=== PATIENT | female | born 1950 | race Caucasian/White ===

== ENCOUNTER 2018-11-10 19:03 | Emergency (ER) | payer OTHER ==
[~2018-11-10] VITALS: Ht 162.6 cm; Wt 82.8 kg
[2018-11-10 19:24] VITALS: Ht 162.6 cm; Wt 82.8 kg
[2018-11-10] MEDS ORDERED: PROMETHAZINE/DM (CUP) PO ONE (23:00)
--- NOTE | 2018-11-10 23:08 | ERD ---
ER Documentation Chief Complaint Chief Complaint c/o cough x5 days, fever today. Took motrin at home [employer] HPI 67-year-old female no past medical history presents with history of cough and fe clark. States her cough was started about 5 days ago when she spiked a fever of 101 today. She has been taking Motrin. States that the cough is been getting worse over the last 5 days. Denies chest pain, wheezing, dyspnea, shortness of breath, leg edema, hemoptysis, orthopnea, nausea, vomiting, diarrhea. Denies past medical history. Denies allergies. Denies medications. Denies surgeries. Denies alcohol, tobacco, drug use. Up to date on vaccines. ROS All systems reviewed and are negative except as per history of present illness. Medications Home Meds Active Scripts Albuterol Sulfate* (Ventolin HFA*) 18 Gm Hfa.aer.ad, 2 PUFF INHALATION Q4H, #1 INHALER Prov:CELSO PINK 11/11/18 Promethazine HCl/Codeine (Prometh-Codein 6.25-10 mg/5 ml) 5 Ml Syrup, 5 ML PO Q4 for cough, #4 OZ Prov:CELSO PINK 11/10/18 Allergies Allergies: Coded Allergies: No Known Allergies (Verified Allergy, Unknown, 11/10/18) PMhx/Soc Medical and Surgical Hx: pt denies Medical Hx, pt denies Surgical Hx Hx Alcohol Use: No Hx Substance Use: No Hx Tobacco Use: No Smoking Status: Never smoker FmHx Family History: No diabetes, No coronary disease, No other Physical Exam Vitals Vital Signs Date Temp Pulse Resp B/P (MAP) Pulse Ox O2 O2 Flow FiO2 Time Delivery Rate 11/11/18 98.8 86 18 143/67 93 Room Air 00:46 (92) 11/10/18 98.7 84 20 153/73 98 19:24 (99) Physical Exam Const: No acute distress Head: Atraumatic Eyes: Normal Conjunctiva ENT: Normal External Ears, Nose and Mouth. Neck: Full range of motion. No meningismus. Resp: Adventitious sounds heard in the upper lung mast bilaterally. No pallor or cyanosis noted. No respiratory distress noted Cardio: Regular rate and rhythm, no murmurs Abd: Soft, non tender, non distended. Normal bowel sounds Skin: No petechiae or rashes Back: No midline or flank tenderness Ext: No cyanosis, or edema Neur: Awake and alert Psych: Normal Mood and Affect Results 24 hrs Laboratory Tests Test 11/10/18 23:08 Troponin I < 0.012 ng/ml Current Medications Medications Dose Sig/Fritz Start Time Status Last (Trade) Ordered Route PRN Stop Time Admin Dose Reason Admin Promethazine 10 ml ONCE ONCE 11/10/18 DC 11/10/18 HCl/ PO 23:00 23:12 Dextromethorp 11/10/18 23:01 zacarias (Phenergan-Dm ) Procedures/MDM DIAGNOSTIC IMAGING REPORT Patient: JOSE NIETO : 1950 Age: 67 Sex: F MR #: [id number] DOS: 11/10/182258 Ordering MD: CELSO PINK Location: [facility] Room/Bed: PROCEDURE: Portable chest x-ray. CLINICAL INDICATION: Cough, crackles. TECHNIQUE: Portable AP view of the chest. COMPARISON: None. FINDINGS: There is peribronchial cuffing. No pulmonary conolidation is identified. The cardiac silhouette is magnified. There are aortic calcifications. No pleural effusion is seen. There is no pneumothorax. IMPRESSION: Peribronchial cuffing, possibly due to bronchiolitis or asthma. Aortic atherosclerosis. RPTAT: HTAR .Jr Cheema MD, Date Time Electronically viewed and signed by .Jr Cheema MD, MD on 11/11/2018 00:21 .R/ CC: CELSO PINK [id number] EKG: Rate/Rhythm: Normal Sinus Rhythm QRS, ST, T-waves: No changes consistent w/ acute ischemia Impression: No evidence of ischemia or arrhythmia 67-year-old female no past medical history presents with history of cough and fever. States her cough was started about 5 days ago when she spiked a fever of 101 today. She has been taking Motrin. States that the cough is been getting worse over the last 5 days. Denies chest pain, wheezing, dyspnea, shortness of breath, leg edema, hemoptysis, orthopnea, nausea, vomiting, diarrhea. Denies past medical history. Denies allergies. Denies medications. Denies surgeries. Denies alcohol, tobacco, drug use. Up to date on vaccines. Chest x-ray, EKG, troponin were performed. Results within normal limits. Patient most likely suffering from viral URI. Low suspicion for heart failure, myocardial infarction, tubercolosis, pneumonia, pleural effusion, foreign body aspiration, pulmonary embolism, pneumothorax, or other emergent etiology. Patients O2 sat is normal and is not having difficulty breathing, therefore patient is fit for discharge. Patient discharged with rx for promethazine and albuterol and advised to follow up with PMD. Patient discharged with strict ER precautions. All questions answered at discharge. Departure Diagnosis: Primary Impression: URI (upper respiratory infection) URI type: unspecified viral URI Qualified Codes: J06.9 - Acute upper respiratory infection, unspecified Condition: Stable CELSO PINK Nov 10, 2018 23:08
[2018-11-10] MEDS ORDERED: PROM5SYR2 PO (23:09)
[2018-11-11] MEDS ORDERED: ALBU18HF INHALATION (00:35)
[2018-11-11 00:46] VITALS: BP 143/67; PULSE 86; RESP 18
== END 2018-11-11 00:48 | disposition home or self-care (01) ==
LOC: FTE 19:03
DX: J06.9 Acute upper respiratory infection, unspecified (principal)
CPT/HCPCS: 71045; 84484; 93005; Z7502; Z7610